=== PATIENT | female | born 1990 | race African-American/Black ===

== ENCOUNTER 2018-04-21 17:44 | Emergency (ER) | payer SELFPAY ==
[~2018-04-21] VITALS: Ht 162.6 cm; Wt 79.5 kg
[2018-04-21 17:50] VITALS: Ht 162.6 cm; Wt 79.5 kg
[2018-04-21 20:38] LABS: BASOPHILS 0.4 % (0-2); EOSINOPHILS 6.1 % (0-7); HEMATOCRIT 37.8 % (36.0-48.0); HEMOGLOBIN 12.3 g/dL (12-16); IMMATURE GRANULOCYTES 0.1 % (0-5); LYMPHOCYTES 26.1 % (15-50); MCHC 32.5 g/dL (31.0-37.0); MCV 89.2 fL (80.0-100.0); MEAN PLATELET VOLUME 10.9 fL (7.4-10.4); MONOCYTES 6.1 % (2-11); NEUTROPHILS 61.2 % (40-80); PLATELET COUNT 175 10x3/uL (130-400); RBC 4.24 10x6/uL (4.00-5.40); RDW 12.9 % (11.5-14.5); WBC 7.5 10x3/uL (4.8-10.8)
[2018-04-21 20:59] LABS: ALBUMIN 3.3 g/dL (3.4-5.0); ALKALINE PHOSPHATASE 40 U/L (46-116); ALT (SGPT) 16 U/L (10-68); CALC OSMOLALITY 275 mosm/kg (275-300); CALCIUM 8.3 mg/dL (8.5-10.1); CARBON DIOXIDE 24.6 mmol/L (21.0-32.0); CHLORIDE - SERUM 108 mmol/L (98-107); CREATININE - SERUM 0.8 mg/dL (0.6-1.3); GLUCOSE 87 mg/dL (74-106); POTASSIUM - SERUM 3.2 mmol/L (3.5-5.1); PROTEIN - SERUM 7.1 g/dL (6.4-8.2); SODIUM 140 mmol/L (136-145); UREA NITROGEN 7 mg/dL (7-18); URIC ACID 3.8 mg/dL (2.6-7.2); eGFR NON AFRICAN AMERICAN 90 mL/min (90-120)
[2018-04-21] MEDS ORDERED: KEFLEX500 MG PO (22:15)
[2018-04-21] MEDS ORDERED: CYCLOBENZAPRINE10 MG PO (22:15)
[2018-04-21] MEDS ORDERED: K-TAB10 MEQ PO (22:15)
[2018-04-21 23:20] VITALS: BP 120/71
== END 2018-04-21 23:21 | disposition home or self-care (01) ==
LOC: D.ER 17:44
PROVIDERS: Family Medicine
DX: M79.672 Pain in left foot (principal); E87.6 Hypokalemia; M25.572 Pain in left ankle and joints of left foot; R25.2 Cramp and spasm

== ENCOUNTER 2018-04-24 17:43 | Emergency (ER) | payer SELFPAY ==
[2018-04-21 17:50] VITALS: BMI 30.1
[~2018-04-24 17:43] MED LIST: CYCLOBENZAPRINE10 MG PO; K-TAB10 MEQ PO; KEFLEX500 MG PO
== END 2018-04-24 18:26 | disposition left against medical advice (07) ==
LOC: D.ER 17:43
DX: M79.672 Pain in left foot (principal); E87.6 Hypokalemia; M25.572 Pain in left ankle and joints of left foot; R25.2 Cramp and spasm

== ENCOUNTER 2018-06-25 13:14 | Emergency (ER) | payer SELFPAY ==
[~2018-06-25] VITALS: Ht 162.6 cm; Wt 79.5 kg
[2018-06-25 13:31] VITALS: Ht 162.6 cm; Wt 79.5 kg
[2018-06-25] MEDS ORDERED: VIBRAMYCIN 100100 MG PO (16:07)
[2018-06-25] MEDS ORDERED: PHENERGAN DM SYR5 ML PO (16:07)
[2018-06-25 16:39] VITALS: BP 108/69
== END 2018-06-25 16:40 | disposition home or self-care (01) ==
LOC: D.ER 13:14
DX: J06.9 Acute upper respiratory infection, unspecified (principal); J40 Bronchitis, not specified as acute or chronic; R09.89 Other specified symptoms and signs involving the circulatory and respiratory systems

== ENCOUNTER 2018-09-11 18:30 | Emergency (ER) | payer SELFPAY ==
[~2018-09-11 18:30] MED LIST changes: +PHENERGAN DM SYR5 ML PO; +VIBRAMYCIN 100100 MG PO
== END 2018-09-11 19:02 | disposition left against medical advice (07) ==
LOC: D.ER 18:30
DX: R10.32 Left lower quadrant pain (principal); N93.9 Abnormal uterine and vaginal bleeding, unspecified; F17.200 Nicotine dependence, unspecified, uncomplicated

== ENCOUNTER 2018-10-14 16:57 | Emergency (ER) | payer MEDICAID ==
[~2018-10-14] VITALS: Ht 162.6 cm; Wt 79.5 kg
[2018-10-14 17:27] VITALS: Ht 162.6 cm; Wt 79.5 kg
[2018-10-14] MEDS ORDERED: BIRTH CONTROL PILLS (17:29)
[2018-10-14 18:45] LABS: BASOPHILS 0.4 % (0-2); EOSINOPHILS 3.1 % (0-7); HEMATOCRIT 40.2 % (36.0-48.0); IMMATURE GRANULOCYTES 0.3 % (0-5); LYMPHOCYTES 25.3 % (15-50); MCHC 32.3 g/dL (31.0-37.0); MCV 89.7 fL (80.0-100.0); MEAN PLATELET VOLUME 11.5 fL (7.4-10.4); MONOCYTES 5.3 % (2-11); NEUTROPHILS 65.6 % (40-80); RBC 4.48 10x6/uL (4.00-5.40); RDW 13.1 % (11.5-14.5); WBC 7.5 10x3/uL (4.8-10.8)
[2018-10-14 18:51] LABS: PLATELET COUNT 231 10x3/uL (130-400)
[2018-10-14 19:06] LABS: ALBUMIN 3.3 g/dL (3.4-5.0); ANION GAP 15.6 mmol/L (8-16); BILIRUBIN - TOTAL 0.38 mg/dL (0.2-1.3); CALCIUM 8.6 mg/dL (8.5-10.1); CARBON DIOXIDE 22.4 mmol/L (21.0-32.0); PROTEIN - SERUM 7.9 g/dL (6.4-8.2)
[2018-10-14 19:25] LABS: APPEARANCE CLOUDY (CLEAR); BILIRUBIN NEGATIVE (NEGATIVE); COLOR YELLOW (YELLOW); GLUCOSE NEGATIVE (NEGATIVE); KETONE NEGATIVE (NEGATIVE); NITRITE NEGATIVE (NEGATIVE); PROTEIN NEGATIVE (NEGATIVE); SPECIFIC GRAVITY 1.015 (1.005-1.020); UROBILINOGEN NORMAL (NORMAL)
[2018-10-14] MEDS ORDERED: ZOFRAN ODT4 MG/UDTAB PO (19:41)
[2018-10-14] MEDS ORDERED: BENTYL 20 MG TA20 MG PO (19:41)
[2018-10-14 20:06] VITALS: BP 119/47
== END 2018-10-14 20:28 | disposition home or self-care (01) ==
LOC: D.ER 16:57
PROVIDERS: Family Medicine
DX: R10.84 Generalized abdominal pain (principal); R11.0 Nausea

== ENCOUNTER 2019-02-01 15:23 | Emergency (ER) | payer MEDICAID ==
[~2019-02-01 15:23] MED LIST changes: +BENTYL 20 MG TA20 MG PO; +BIRTH CONTROL PILLS; +ZOFRAN ODT4 MG/UDTAB PO
[2019-02-01 15:43] VITALS: BMI 30.9
[2019-02-01] MEDS ORDERED: NAPROSYN500 MG PO (16:31)
[2019-02-01] MEDS ORDERED: BACLOFEN20 M1 PO (16:31)
[2019-02-01 18:03] VITALS: BP 103/62
== END 2019-02-01 18:04 | disposition home or self-care (01) ==
LOC: D.ER 15:23
DX: S93.401A Sprain of unspecified ligament of right ankle, initial encounter (principal); V43.52XA Car driver injured in collision with other type car in traffic accident, initial encounter; Y93.89 Activity, other specified; Y92.410 Unspecified street and highway as the place of occurrence of the external cause; S16.1XXA Strain of muscle, fascia and tendon at neck level, initial encounter